=== PATIENT | male | born 1995 | race Caucasian/White ===

== ENCOUNTER 2017-04-27 18:54 | Emergency (ER) | payer OTHER ==
[2017-04-27 19:01] VITALS: RESP 16; TEMP 96.8
--- NOTE | 2017-04-27 20:31 | EDPHY ---
H & P Time Seen by Provider: 04/27/17 20:01 HPI/ROS: CHIEF COMPLAINT: Laceration right hand HISTORY OF PRESENT ILLNESS: 21-year-old male presents to the emergency department with a laceration to his right hand. The patient was at work and a wine glass broke and cut the palm of his right hand. It happened just prior to arrival. He was able to control the bleeding with firm direct pressure. He is concerned about retained foreign body. He believes his tetanus shot is current. He is right-hand dominant. ROS: Denies numbness or tingling in his fingers, pain in his right wrist. 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 Slow active bleeding noted. There is a visible piece of glass noted in the wound which was removed with forceps. Full range of motion of his fingers. Strong radial pulse at the right wrist. The other fingers do not appear injured. Constitutional: Initial Vital Signs Temperature (C) 36 C 04/27/17 18:59 Heart Rate 76 04/27/17 18:59 Respiratory Rate 16 04/27/17 18:59 Blood Pressure 116/65 04/27/17 18:59 O2 Sat (%) 98 04/27/17 18:59 O2 Delivery Mode Room Air Allergies/Adverse Reactions: amoxicillin Allergy (Verified 04/27/17 18:58) penicillin G Allergy (Verified 04/27/17 18:58) Home Medications: Medication Instructions Recorded NK [No Known Home Meds] 04/27/17 MDM/Departure - MDM Imaging Results: Imaging Impressions Hand X-Ray 04/27/17 19:23 Impression: Punctate superficial radiopaque structure in the area of laceration suggesting foreign object. Procedures: Laceration repair. Verbal consent was obtained from the patient. The 1.5 cm laceration on the right palm was anesthetized using 1% lidocaine with epinephrine. The wound was irrigated with saline, draped and explored to its base with a gloved finger. Piece of glass easily removed with forceps. There were no deep structures involved. No tendon injury was identified. The wound was repaired with 4 0 Ethilon, 3 sutures. The wound repair was simple. The procedure was performed by myself. ED Course/Re-evaluation: A 21-year-old male presents with right hand laceration. Patient also had a retained piece of glass which is easily removed with forceps. The wound was repaired, see procedure note. His tetanus shot is current. He was given wound care precautions. - Depart Disposition: Home, Routine, Self-Care Clinical Impression: Laceration of right hand Qualifiers: Encounter type: initial encounter Foreign body presence: with foreign body Qualified Code(s): S61.421A - Laceration with foreign body of right hand, initial encounter Condition: Good Instructions: Care For Your Stitches (ED), Laceration (ED), Acute Wounds (ED) Additional Instructions: Wound Care Follow-Up: Removal of sutures in 10 days. Suture removal is complimentary in uncomplicated cases. Infection or abnormal findings would require reevaluation by the MD. In that case, you may be billed. Return if you notice any signs or symptoms of infection such as redness, swelling, increased pain, fever, purulent drainage. Referrals: PRISAC GOODEN MD [Other] - As per Instructions
[2017-04-27 21:02] VITALS: BP 132/80; PULSE 61; O2SAT 96
== END 2017-04-27 21:01 | disposition home or self-care (01) ==
PROC: 0HQFXZZ Repair Right Hand Skin, External Approach (ICD-10-PCS; principal; 2017-04-27)
DX: S61.421A Laceration with foreign body of right hand, initial encounter (principal); F17.200 Nicotine dependence, unspecified, uncomplicated; W25.XXXA Contact with sharp glass, initial encounter; Y99.0 Civilian activity done for income or pay

== ENCOUNTER 2017-08-16 20:52 | Emergency (ER) | payer OTHER ==
--- NOTE | 2017-08-16 21:33 | EDPHY ---
General - History Smoking Status: Current every day smoker Time Seen by Provider: 08/16/17 21:27 Narrative: CHIEF COMPLAINT: Thumb laceration HISTORY OF PRESENT ILLNESS: Patient presents with complaints of laceration to right thumb. He states that he was polishing a wine glass when it accidentally broke, striking the back of the right thumb. He sustained a laceration of bleeding but no difficulty bending or straightening the finger. No numbness, tingling or weakness. No pulsatile bleeding. Minimal pain at rest. [id number] with palpation and movement. No other associated complaints or modifying factors. Right-hand dominant TIME OF INJURY: Approximately 8:30 p.m. TETANUS STATUS: Less than 4 years ago MEDICAL/SURGICAL/SOCIAL HISTORY: Uncomplicated medical history. Lives and works here locally. This was a work related injury REVIEW OF SYSTEMS: Ten systems reviewed and are negative unless otherwise noted in the HPI EXAMINATION General Appearance: Alert, no distress Head: normocephalic, atraumatic Cardiovascular: Symmetric radial pulses 2+. Brisk cap refill on all 5 fingers of the right hand. Neurological: A&O, sensory symmetric, strength symmetric Skin: Warm and dry, no rash. No petechiae or purpura. There is a 1.5 cm laceration to the dorsum of the right thumb over the proximal phalanx. This is central. There is no exposure of the tendon. No foreign body. Neurovascular intact distally. Extremities: Tender over the area of right thumb laceration. There is full range of motion of the right hand and fingers without deficit. DIFFERENTIAL DIAGNOSES: Including but not limited to laceration, complex laceration, laceration with tendon injury. MDM: 9:33 p.m. Superficial laceration to the dorsum of the right thumb over the proximal phalanx. No exposure of the extensor tendon. No deficits. Tetanus up-to- date. I have ordered x-ray to rule out foreign body. I have administered a block and proceed with irrigation closure 10:30 p.m. X-rays negative for foreign bodies read by me. He is neurovascular intact pre digital block. We have irrigated the wound copiously. I have close the wound without difficulty. We discussed wound care. We discussed work comp follow- up. We discussed ED precautions. He is comfortable this plan and discharged home stable condition. PROCEDURE: Laceration repair Consent: Verbal Location: Right thumb, dorsum Length of repair: 1.5 cm Complexity: Simple Layer involvement: Single Anesthesia: Local. 0.5% Marcaine. 3 mL Irrigation: Extensive Debridement: None Procedure description: Following good anesthesia, the wound was copiously irrigated. Wound bed was explored with a sterile glove, and there is no foreign body noted. No exposure of the extensor tendon. No foreign body Wound borders were approximated well with good hemostasis. Tolerated well without complication. Suture/Staple material: 5-0 Prolene, 3 simple interrupted sutures Wound care: Routine as discussed Suture/Staple removal: 7-10 Days SUPERVISION: This patient was independently evaluated without direct involvement of or examination by the attending physician. ED Precautions: Worsening pain. Erythema, edema, cyanosis, pallor, paresthesia or anesthesia. (Kei Kelley) The patient was evaluated and managed by the physician assistant chief nursing officer. I have reviewed this chart and I agree with the findings and plan of care as documented , as indicated by my signature. I am the secondary supervising physician. ( Tania Beltran) - Objective Vital Signs: Initial Vital Signs Temperature (C) 36.9 C 08/16/17 21:07 Heart Rate 62 08/16/17 21:07 Respiratory Rate 16 08/16/17 21:07 Blood Pressure 132/68 H 08/16/17 21:07 O2 Sat (%) 95 08/16/17 21:07 O2 Delivery Mode Room Air Allergies/Adverse Reactions: amoxicillin Allergy (Verified 04/27/17 18:58) penicillin G Allergy (Verified 04/27/17 18:58) Home Medications: Medication Instructions Recorded NK [No Known Home Meds] 04/27/17 Departure - Departure Disposition: Home, Routine, Self-Care Clinical Impression: Laceration of thumb Condition: Good Instructions: Care For Your Stitches (ED), Laceration (ED) Additional Instructions: 1. Daily wound care as discussed 2. Keep the wound clean, dry and covered at all times 3. [facility] for outpatient follow-up 4. Return here or your work comp clinic in 7-10 days for suture removed Referrals: Physician,Emergency Dept, MD [Medical Doctor] - As per Instructions (7-10 days for suture removal) Stand Alone Forms: Work Comp Follow Up
[2017-08-16 22:47] VITALS: BP 140/95
== END 2017-08-16 22:46 | disposition home or self-care (01) ==
PROC: 0HQFXZZ Repair Right Hand Skin, External Approach (ICD-10-PCS; principal; 2017-08-16)
DX: S61.011A Laceration without foreign body of right thumb without damage to nail, initial encounter (principal); F17.200 Nicotine dependence, unspecified, uncomplicated; W25.XXXA Contact with sharp glass, initial encounter; Y99.8 Other external cause status; Y93.89 Activity, other specified